=== PATIENT | female | born 1965 | race Caucasian/White ===

== ENCOUNTER → 2024-11-27 | Outpatient (CLI) | payer BC | LOC: M WHC 13:09 | PROVIDERS: ATTEND Student in an Organized Health Care Education/Training Program | DX: M81.0 Age-related osteoporosis without current pathological fracture (principal); M85.852 Other specified disorders of bone density and structure, left thigh; M85.88 Other specified disorders of bone density and structure, other site; Z13.820 Encounter for screening for osteoporosis ==